=== PATIENT | female | born 1940 | race Caucasian/White ===

== ENCOUNTER → 2016-09-13 | Outpatient (CLI) | payer BC ==
[2016-09-13 13:05] LABS: BLOOD UREA NITROGEN 18 mg/dl (7-18); BUN/CREATININE RATIO 18.4 (10-20); CARBON DIOXIDE 33 mmol/L (21-32); CHLORIDE 105 mmol/L (98-107); GLUCOSE 92 mg/dl (70-99); POTASSIUM 3.6 mmol/L (3.5-5.1); SODIUM 143 mmol/L (136-145)
[2016-09-13 13:15] LABS: CALCIUM 9.9 mg/dl (8.5-10.1)
== END | disposition home or self-care (01) ==
LOC: C.LAB 10:46
PROVIDERS: ATTEND Family Medicine
DX: E78.5 Hyperlipidemia, unspecified (principal); R53.83 Other fatigue

== ENCOUNTER → 2016-11-29 | Outpatient (CLI) | payer BC ==
--- NOTE | 2016-11-29 10:45 | DIAGNOSTIC IMAGING REPORT ---
CHEST 2 VIEWS ROUTINE HISTORY: 76 years-old Female R06.02 Shortness of breathPt with ongoing shortness of breath COMPARISON: 05/24/2014 TECHNIQUE: Frontal and lateral views of the chest FINDINGS: Cardiomediastinal and hilar silhouettes are within normal limits. No pneumothorax, pleural effusion or focal airspace consolidation. The lungs are mildly hyperinflated. Endplate spurring is seen throughout the spine. Increased kyphotic curvature of the thoracic spine is present. IMPRESSION: Mild hyperinflation without acute cardiopulmonary process. The above report was generated using voice recognition software. It may contain grammatical, syntax or spelling errors. Electronically signed by: Alistair Iyer M.D. 11/29/2016 10:44 AM Dictated Date/Time: 11/29/2016 10:43 AM
== END | disposition home or self-care (01) ==
LOC: C.RADBC 10:19
PROVIDERS: ATTEND Family Medicine
DX: R06.02 Shortness of breath (principal)

== ENCOUNTER → 2017-01-10 | Outpatient (CLI) | payer BC ==
[~2017-01-10] MED LIST: OPTIRAY 320 IV PRN
[2017-01-10 07:44] LABS: MEAN CELL VOLUME 94.8 fL (80-100); MEAN CORPUSCULAR HEMOGLOBIN 30.9 pg (25-34); MEAN CORPUSCULAR HGB CONC 32.7 g/dl (32-36); MEAN PLATELET VOLUME 11.1 fL (7.4-10.4); PLATELET COUNT 184 K/uL (130-400); RED BLOOD COUNT 5.17 M/uL (4.2-5.4); WHITE BLOOD COUNT 4.78 K/uL (4.8-10.8)
[2017-01-10 08:03] LABS: ALT/SGPT 40 U/L (12-78); BLOOD UREA NITROGEN 16 mg/dl (7-18); CARBON DIOXIDE 34 mmol/L (21-32); CHLORIDE 104 mmol/L (98-107); CREATININE 0.98 mg/dl (0.60-1.20); GLUCOSE 112 mg/dl (70-99); POTASSIUM 3.5 mmol/L (3.5-5.1); SODIUM 143 mmol/L (136-145)
[2017-01-10 08:10] LABS: ALB/GLOB RATIO 1.1 (0.9-2); ALKALINE PHOSPHATASE 49 U/L (45-117); AST/SGOT 28 U/L (15-37)
--- NOTE | 2017-01-10 08:37 | DIAGNOSTIC IMAGING REPORT ---
CT OF THE CHEST WITH IV CONTRAST CLINICAL HISTORY: Pulmonary edema. Shortness of breath. Chest discomfort. COMPARISON STUDY: Chest radiograph November 29, 2016. TECHNIQUE: Following IV administration of 93 mL of Optiray-320, helical axial images of the chest were obtained. Sagittal and coronal reconstructions were viewed as well as maximal intensity projections on an independent 3-D workstation. A dose lowering technique was utilized adhering to the principles of ALARA. CT DOSE: 357.62 mGy.cm FINDINGS: No enlarged axillary, mediastinal or hilar lymph nodes are present. The size of the heart is normal. There is no pericardial effusion. There is no pneumomediastinum. The central airways are patent. No pneumothorax or pleural effusion is present. There is no consolidation to suggest pneumonia. Minimal linear bilateral lower lobe, right middle lobe and lingular opacities reflect atelectasis. No CT findings to suggest bronchiectasis are noted. There is no honeycombing. There is no subpleural reticulation. The bony thorax is unremarkable. Fatty infiltration of the liver is incidentally noted. IMPRESSION: 1. No acute intrathoracic findings. 2. No CT evidence of interstitial lung disease. 3. Linear and groundglass opacities within the lower lobes, right middle lobe and lingula suggestive of atelectasis. 4. Fatty liver. Electronically signed by: Lobo Monsivais M.D. 01/10/2017 8:36 AM Dictated Date/Time: 01/10/2017 8:26 AM
[2017-01-10 08:41] LABS: BASO ABS # 0.08 K/uL (0-0.2); BASOPHIL % 1.7 %; COMPLETE YES; EOSINOPHIL % 2.6 %; LYMPH ABS # 2.15 K/uL (1.2-3.4); LYMPHOCYTE % 44.9 %; NEUTROPHILS % 28.4 %; VARIANT LYM ABS # 0.66 K/uL; VARIANT LYMPHOCYTE % 13.8 %
== END | disposition home or self-care (01) ==
LOC: C.CTS 06:46
PROVIDERS: ATTEND Internal Medicine Pulmonary Disease
DX: R07.89 Other chest pain (principal); J81.1 Chronic pulmonary edema; R06.02 Shortness of breath; K76.0 Fatty (change of) liver, not elsewhere classified

== ENCOUNTER → 2017-02-16 | Outpatient (CLI) | payer BC ==
--- NOTE | 2017-02-16 19:46 | EXERCISE STRESS ECHO ---
*NOTICE TO RECEIVING CONSTITUTION PARTY AGENCY This information is strictly Confidential and protected under [place] law. [place] law prohibits you from making any further disclosure of this information unless further disclosure is expressly permitted by the written consent of the person to whom it pertains or is authorized by law. A general authorization for the release of medical or other information is not sufficient for this purpose. Hospital accepts no responsibility if the information is made available to any other person, INCLUDING THE PATIENT. Interpretation Summary * Name: PEACE MAIER Study Date: 02/16/2017 11:45 AM BP: 135/84 mmHg * Patient Location: [facility] HR: 64 * : 1940 (M/d/yyyy) Gender: Female Height: 63 in * Age: 76 yrs Ethnicity: [place] Weight: 196 lb * Ordering Physician: Abel Loo * Referring Physician: Abel Loo * Performed By: Santiago Rodriges RCS * * Reason For Study: CHEST DISCOMFORT * BSA: 1.9 m2 * Normal resting left ventricular systolic function and wall motion. * Class 1 left ventricular diastolic dysfunction. * Mild left atrial dilatation. * No significant valvular abnormalities. * The exercise echocardiographic examination is normal without resting left ventricular wall motion abnormalities or inducible ischemia. * The left ventricular ejection fraction increases normally with stress. The left ventricular end-systolic cavity size reduces post-stress (normal response). The left ventricular wall motion with stress is normal. * The stress echocardiogram is negative for inducible ischemia. * The stress ECG response was normal * -- Conclusions -- * No segmental left ventricular wall motion abnormalities are noted. Procedure Details * ECHOEX, CPT #[id number] * ECHO COLOR FLOW, CPT #[id number] * ECHO DOPPLER, CPT #[id number] Left Ventricle * The left ventricle is normal in size. * There is normal left ventricular wall thickness. * Left ventricular systolic function is normal. * The left ventricular ejection fraction is normal. * Ejection Fraction = 55-60%. * The left ventricular ejection fraction increases normally with stress. The left ventricular end-systolic cavity size reduces post-stress (normal response). The left ventricular wall motion with stress is normal. * No segmental left ventricular wall motion abnormalities are noted. * A full diastolic examination was done with clinical findings of Class I diastolic dysfunction. * Resting wall motion: Normal. Stress wall motion: Appropriate increase in Left ventricular systolic function and decrease in cavity size. No stress induced segmental wall motion abnormalities. Right Ventricle * The right ventricle is normal in size and function. Atria * The left atrium is mildly dilated. * Right atrial size is normal. * No ASD detected; PFO is not assessed. Mitral Valve * The mitral valve is normal. * There is no mitral valve stenosis. * There is trace mitral regurgitation. Tricuspid Valve * The tricuspid valve is normal. * There is no tricuspid stenosis. * No tricuspid regurgitation. Aortic Valve * The aortic valve is trileaflet. * The aortic valve opens well. * Aortic stenosis is absent. * No aortic regurgitation is present. Pulmonic Valve * The pulmonic valve is not well visualized. * The pulmonary valve is inadequately visualized, but the Doppler data is adequate for interpretation. * Pulmonic stenosis is absent. * There is no significant pulmonary regurgitation. Great Vessels * The aortic root is normal size. Pericardium * There is no pericardial effusion. Stress Parameters * The baseline ECG displays normal sinus rhythm. * The baseline ECG displays normal ST segments. * The stress ECG response was normal * The stress portion of this study was personally supervised by the undersigned interpreting physician. * Rest heart rate was '64' BPM. * Rest blood pressure was '135/84' * Maximum heart rate achieved was 148 bpm. * Maximum heart rate was 102 % of maximum age-predicted heart rate. * Maximum blood pressure was '195/70' * Total exercise time was '04:19' * Maximum exercise MET level achieved was '6.10' METS * Maximum treadmill speed was '2.50' miles per hour. * Maximum treadmill elevation was '12.00'% grade. * Exercise was stopped due to fatigue. MMode 2D Measurements and Calculations IVSd 1.1 cm IVSs 1.5 cm LVIDd 4.3 cm LVIDs 2.5 cm LVPWd 1.0 cm LVPWs 1.3 cm IVS/LVPW 1.1 FS 41.7 % EDV(Teich) 84.5 ml ESV(Teich) 22.9 ml EF(Teich) 72.9 % EDV(cubed) 81.3 ml ESV(cubed) 16.1 ml EF(cubed) 80.2 % % IVS thick 34.1 % % LVPW thick 27.4 % LV mass(C)d 157.1 grams LV mass(C)dI 81.9 grams/m\S\2 LV mass(C)s 111.6 grams LV mass(C)sI 58.2 grams/m\S\2 SV(Teich) 61.6 ml SI(Teich) 32.1 ml/m\S\2 SV(cubed) 65.2 ml SI(cubed) 34.0 ml/m\S\2 Ao root diam 2.7 cm Ao root area 5.8 cm\S\2 ACS 1.9 cm LA dimension 4.3 cm LA/Ao 1.6 LVOT diam 2.0 cm LVOT area 3.1 cm\S\2 EDV(MOD-sp4) 86.7 ml ESV(MOD-sp4) 36.7 ml EF(MOD-sp4) 57.7 % EDV(MOD-sp2) 81.9 ml ESV(MOD-sp2) 40.5 ml EF(MOD-sp2) 50.5 % SV(MOD-sp4) 50.0 ml SI(MOD-sp4) 26.1 ml/m\S\2 SV(MOD-sp2) 41.4 ml SI(MOD-sp2) 21.6 ml/m\S\2 Doppler Measurements and Calculations MV E max soledad 50.8 cm/sec MV A max soledad 77.6 cm/sec MV E/A 0.65 MV P1/2t max soledad 66.9 cm/sec MV P1/2t 42.7 msec MVA(P1/2t) 5.1 cm\S\2 MV dec slope 458.4 cm/sec\S\2 MV dec time 0.27 sec Ao V2 max 98.4 cm/sec Ao max PG 3.9 mmHg Ao max PG (full) 0.96 mmHg DINA(V,A) 2.7 cm\S\2 DINA(V,D) 2.7 cm\S\2 LV V1 max PG 2.9 mmHg LV V1 max 85.2 cm/sec PA V2 max 85.2 cm/sec PA max PG 2.9 mmHg
== END | disposition home or self-care (01) ==
LOC: C.CPL 11:28
PROVIDERS: ATTEND Internal Medicine Cardiovascular Disease
DX: R07.89 Other chest pain (principal)

== ENCOUNTER → 2017-04-07 | Outpatient (CLI) | payer BC ==
--- NOTE | 2017-04-07 14:26 | MAMMOGRAPHY REPORT ---
BILATERAL DIGITAL SCREENING MAMMOGRAM WITH CAD: 04/07/2017 CLINICAL HISTORY: Routine screening. Patient has no complaints. TECHNIQUE: Current study was also evaluated with a Computer Aided Detection (CAD) system. Bilateral CC and MLO views were obtained. COMPARISON: Comparison is made to exams dated: 04/05/2016 mammogram, 04/03/2015 mammogram, 04/01/2014 mammogram, 03/30/2013 mammogram, 03/29/2012 mammogram, and 03/10/2010 mammogram - [facility]. BREAST COMPOSITION: The tissue of both breasts is almost entirely fatty. FINDINGS: No suspicious masses, calcifications, or areas of architectural distortion are noted in ei ther breast. There has been no significant interval change compared to prior exams. Scattered bilater al benign-appearing calcifications are not significantly changed. IMPRESSION: ACR BI-RADS CATEGORY 2: BENIGN There is no mammographic evidence of malignancy. A 1 year screening mammogram is recommended. The pa tient will receive written notification of the results. Approximately 10% of breast cancers are not detected with mammography. A negative mammographic report should not delay biopsy if a clinically suggestive mass is present. Rekha Martin M.D. /:04/07/2017 11:59:19 Talent Rep: Kinza Rodriguez, [facility] letter sent: Normal 1/2 BI-RADS Code: ACR BI-RADS Category 2: Benign
== END | disposition home or self-care (01) ==
LOC: C.MAMM 10:51
PROVIDERS: ATTEND Family Medicine
DX: Z12.31 Encounter for screening mammogram for malignant neoplasm of breast (principal)

== ENCOUNTER → 2017-05-18 | Outpatient (CLI) | payer BC ==
[2017-05-18 10:41] LABS: ALT/SGPT 33 U/L (12-78); BLOOD UREA NITROGEN 20 mg/dl (7-18); CALCIUM 9.6 mg/dl (8.5-10.1); CARBON DIOXIDE 34 mmol/L (21-32); CREATININE 0.86 mg/dl (0.60-1.20); GLUCOSE 90 mg/dl (70-99); POTASSIUM 3.6 mmol/L (3.5-5.1); SODIUM 141 mmol/L (136-145)
[2017-05-18 10:42] LABS: CHOLESTEROL 221 mg/dl (0-200); LDL CHOLESTEROL CALCULATED 118 mg/dl
== END | disposition home or self-care (01) ==
LOC: C.LAB1850 07:53
PROVIDERS: ATTEND Family Medicine
DX: E78.5 Hyperlipidemia, unspecified (principal)